=== PATIENT | female | born 1960 | race Caucasian/White ===

== ENCOUNTER 2021-11-08 13:29 | Inpatient (IN) | payer OTHER, SELFPAY ==
--- NOTE | 2021-11-08 14:22 | ED.PSYCH ---
HPI - Psych General Chief Complaint: Psychiatric Symptoms Stated Complaint: failure to thrive Time Seen by Provider: 11/08/21 14:21 Source: patient Mode of arrival: EMS Limitations: no limitations History of Present Illness HPI Narrative: This is a 60-year-old female presenting to the emergency department via ambulance on a Section 12, she is coming in for failure to thrive. According to patient for the past 15 days she has been having hard time sleeping, she lives at home with her who is very ill who she has been taking care of. She reports that she has been eating much or drinking over the past 15 days. She tells me that throughout the day shows does have water and soda. She also tells me she has not been taking care of her not showering, or doing personal care activiteies such as brushing teeth and hygiene. She reports anxiety, racing thoughts. She tells me that she has been hearing voices, she hears male voices speaking to her, she can not really tell me exactly what they are saying to her. She tells me that this is new. Denies visual and tactile hallucinations. Denies drugs, alcohol and tobacco use. Patient tells me that she used to be on trazodone and Zoloft years ago however she has not been taking these meds for a while. Unsure why she was taking these medications,she tells me that she thinks is for anxiety and depression. Denies SI/HI. She has no medical complaints at this time. complaint: anxiety Onset (ago): day(s) (15) Duration: constant History of same: Yes Relieving factors: none Exacerbating factors: none Context: significant life stressor (very ill ) Associated psychiatric symptoms: racing thoughts Associated symptoms: denies other symptoms Treatments prior to arrival: placed on mental health hold Related Data Home Medications Medication Instructions Recorded Confirmed No Known Home Meds 11/08/21 11/08/21 Allergies Allergy/AdvReac Type Severity Reaction Status Date / Time No Known Allergies Allergy Verified 11/08/21 14:37 [No Known Allergies*] Review of Systems Review of Systems: Constitutional : No Fever, No Chills ENT/Mouth : No sore throat, No Rhinorrhea Eyes: No Eye Pain, No Swelling, No Redness Cardiovascular : No Chest Pain, No SOB Respiratory : No Cough, No Sputum Gastrointestinal : No Nausea, No Vomiting, No Diarrhea, No abdominal Pain Genitourinary : No Dysuria, No Hematuria Musculoskeletal : No joint pain, No Myalgias, No Joint Swelling Skin : No Skin Lesions, No rash Neuro : No Weakness, No Numbness Psych : + Anxiety, No Depression, No SI/HI/AH/VH All other systems reviewed and are negative Yes all other systems are reviewed and are negative [facility] Past Medical History Attestation statement: The following information was validated with the patient. Source: old records reviewed and nursing notes reviewed Social History Social History Alcohol intake: never Patient Tobacco Use Status: Never used Tobacco Use of substances other than those prescribed or required for medical reasons: No Advance Directives: Yes Advance Directives Information Provided: No Advance Directives on File: No Physical Exam Vital Signs: Vital Signs: Last Vital Signs Temp 98.8 F 11/08/21 14:41 Pulse 84 11/08/21 14:41 Resp 18 11/08/21 14:41 BP 149/93 H 11/08/21 14:41 Pulse Ox 96 11/08/21 14:41 BMI result Body Mass Index 35.5 VSS Appearance: Alert.? Oriented X3.? No acute distress.? Head: Normocephalic, atraumatic, no step-offs or deformities Eyes: Pupils equal, round and reactive to light.? ENT: Pharynx normal.? Neck: Normal inspection.? Neck supple.? CVS: Normal heart rate and rhythm.? Pulses normal.? Respiratory: No respiratory distress.? Breath sounds normal.? Abdomen: Soft and nontender.? Skin: Skin warm and dry.? Normal skin color.? Normal skin turgor.? Extremities: No lower extremity edema.? No calf ttp. 5/5 strength to bilateral upper and lower extremities Back: No midline tenderness, no C-spine tenderness, full range of motion, no CVA tenderness bilaterally Neuro: Oriented X 3.? No motor deficit.? No sensory deficit. CN 2-12 intact Course Reevaluation(s) Reevaluation #1: CBC within normal limits. No acute electrolyte abnormalities. Urine clean. HYLTON negative. COVID negative. At this time patient will be placed in physician observation to allow more time for the behavioral health team to evaluate this patient. At time the observation was started vital signs were stable. Patient was not in any acute distress. Physical examination unchanged from initial. Will continue to monitor. Time: 16:55 MDM - Psych MDM Narrative Medical decision making narrative: 1420 60 yo f presenting from home on a section 12 for inability of taking care of herself, patient reports anxiety, depression and auditory hallucinations times 15 days. She reports she has not been taking care of herself, not practicing activities of daily living. Remote history of anxiety and depression used to take trazodone and Zoloft years ago. Has had multiple psych admissions in the past. PE benign Plan, basic labs, covid, UA, ethanol Medical Records Attestation: I reviewed the patient's medical records. Lab Data Attestation: I reviewed the patient's lab results. Result diagrams: 11/08/21 16:24 11/08/21 16:24 Labs: Lab Results 11/08/21 11/08/21 11/08/21 Range/Units 14:48 14:48 14:48 WBC (4.8-10.8) X10*3/uL RBC (4.20-5.50) X10*6/uL Hgb (12.0-16.0) g/dl Hct (37.0-47.0) % MCV (80.0-98.0) fL MCH (27.0-33.0) pg MCHC (31.0-35.0) g/dl RDW (11.0-16.0) % Plt Count (160-400) X10*3/uL MPV (9.4-12.3) fL Immature Gran % (Auto) (0.0-0.4) % Neut % (Auto) (45-73) % Lymph % (Auto) (20-40) % [place] % (Auto) (2-11) % Eos % (Auto) (0-4) % Baso % (Auto) (0-2) % Lymph # (Auto) (1.2-4.9) X10*3/uL [place] # (Auto) (0.1-1.2) X10*3/uL Eos # (Auto) (0.0-0.4) X10*3/uL Baso # (Auto) (0.0-0.2) X10*3/uL Abs Immat Gran (auto) (0.00-0.03) X10*3/uL Absolute Neuts (auto) (2.0-8.3) x10*3/uL Absolute Nucleated RBC (0.0-0.012) X10*3/uL Nucleated RBC % (auto) (0.0-0.2) /100WBC Urine Color YELLOW Urine Appearance CLEAR Urine pH 7.5 (5.0-8.0) Ur Specific [place] 1.015 (1.005-1.025) Urine Protein NEG (NEG-TRACE) MG/DL Urine Glucose (UA) NEG (NEG) MG/DL Urine Ketones 5 (NEG) MG/DL Urine Blood NEG (NEG) Urine Nitrite NEG (NEG) Ur Leukocyte Esterase NEG (NEG) Urine Opiates Screen Not Detected (Not Detect) Urine Fentanyl Screen Not Detected (Not Detect) Ur Barbiturates Screen Not Detected (Not Detect) Ur Phencyclidine Scrn Not Detected (Not Detect) Ur Amphetamines Screen Not Detected (Not Detect) U Benzodiazepines Scrn Not Detected (Not Detect) Urine Cocaine Screen Not Detected (Not Detect) U Marijuana (THC) Screen Not Detected (Not Detect) COVID-19 ([facility]) Negative (Negative) COVID-19 Clin Com See Note 11/08/21 Range/Units 16:24 WBC 6.0 (4.8-10.8) X10*3/uL RBC 4.51 (4.20-5.50) X10*6/uL Hgb 15.1 (12.0-16.0) g/dl Hct 45.6 (37.0-47.0) % MCV 101.1 H (80.0-98.0) fL MCH 33.5 H (27.0-33.0) pg MCHC 33.1 (31.0-35.0) g/dl RDW 14.2 (11.0-16.0) % Plt Count 218 (160-400) X10*3/uL MPV 10.3 (9.4-12.3) fL Immature Gran % (Auto) 0.2 (0.0-0.4) % Neut % (Auto) 59.3 (45-73) % Lymph % (Auto) 32.9 (20-40) % [place] % (Auto) 5.4 (2-11) % Eos % (Auto) 1.5 (0-4) % Baso % (Auto) 0.7 (0-2) % Lymph # (Auto) 2.0 (1.2-4.9) X10*3/uL [place] # (Auto) 0.3 (0.1-1.2) X10*3/uL Eos # (Auto) 0.1 (0.0-0.4) X10*3/uL Baso # (Auto) 0.0 (0.0-0.2) X10*3/uL Abs Immat Gran (auto) 0.01 (0.00-0.03) X10*3/uL Absolute Neuts (auto) 3.6 (2.0-8.3) x10*3/uL Absolute Nucleated RBC 0.000 (0.0-0.012) X10*3/uL Nucleated RBC % (auto) 0.0 (0.0-0.2) /100WBC Urine Color Urine Appearance Urine pH (5.0-8.0) Ur Specific [place] (1.005-1.025) Urine Protein (NEG-TRACE) MG/DL Urine Glucose (UA) (NEG) MG/DL Urine Ketones (NEG) MG/DL Urine Blood (NEG) Urine Nitrite (NEG) Ur Leukocyte Esterase (NEG) Urine Opiates Screen (Not Detect) Urine Fentanyl Screen (Not Detect) Ur Barbiturates Screen (Not Detect) Ur Phencyclidine Scrn (Not Detect) Ur Amphetamines Screen (Not Detect) U Benzodiazepines Scrn (Not Detect) Urine Cocaine Screen (Not Detect) U Marijuana (THC) Screen (Not Detect) COVID-19 ([facility]) (Negative) COVID-19 Clin Com Critical Care Time Critical Care Time Critical Care Time: No Discharge Plan Discharge Clinical Impression: Depression, Acute anxiety Patient Disposition: Still a Patient Prescriptions: No Action No Known Home Meds RF: 0
[2021-11-08 14:41] VITALS: BP 149/93; BP 150/62; PULSE 84; PULSE 88; RESP 18; TEMP 37.1; O2SAT 96; BMI 35.5
--- NOTE | 2021-11-08 14:53 | PC.NURSE ---
expect note states that patient is a bedsearch.
--- NOTE | 2021-11-08 15:14 | PC.NURSE ---
Luis Manuel Hubbard at [facility] STATING that patient's notes are still being worked on. Luis Manuel will call back with full assessment and plan of care when it is available.
[2021-11-08 15:16] LABS: Appearance Urine CLEAR; Color Urine YELLOW; Glucose Urine UA NEG (NEG); Leukocyte Esterase Urine NEG (NEG); Nitrite Urine NEG (NEG); PH 7.5 (5.0-8.0); Specific Gravity - Urine 1.015 (1.005-1.025); Urine Blood NEG (NEG); Urine Ketones 5 MG/DL (NEG); Urine Protein NEG (NEG-TRACE)
[2021-11-08 15:26] LABS: COVID-19 Test Negative (Negative)
[2021-11-08 15:28] LABS: Amphetamine Screen Urine Not Detected (Not Detect); Barbiturates, Urine Not Detected (Not Detect); Benzodiazepines Screen Urine Not Detected (Not Detect); Cannabinoid Screen Urine Not Detected (Not Detect); Cocaine Screen Urine Not Detected (Not Detect); Fentanyl, urine Not Detected (Not Detect); Opiate Screen Urine Not Detected (Not Detect); Phencyclidine Screen Urine Not Detected (Not Detect)
--- NOTE | 2021-11-08 16:37 | PC.NURSE ---
has been eating, drinking, and socializing in POD. Is aware of inpatient bedsearch. Was seen by N in the community
[2021-11-08 16:42] LABS: MANUAL DIFF FLAG NO
[2021-11-08 16:44] LABS: Basophils Percent Auto 0.7 % (0-2); Eosinophils Absolute Auto 0.1 X10*3/uL (0.0-0.4); Eosinophils Percent Auto 1.5 % (0-4); Hematocrit 45.6 % (37.0-47.0); Hemoglobin 15.1 g/dl (12.0-16.0); Imm Gran Abs Auto 0.01 X10*3/uL (0.00-0.03); Imm Gran Pct Auto 0.2 % (0.0-0.4); Lymphocytes Percent Auto 32.9 % (20-40); Mean Corpuscular HGB Conc 33.1 g/dl (31.0-35.0); Mean Corpuscular Hemoglobin 33.5 pg (27.0-33.0); Mean Corpuscular Volume 101.1 fL (80.0-98.0); Mean Platelet Volume 10.3 fL (9.4-12.3); Monocytes Absolute Auto 0.3 X10*3/uL (0.1-1.2); Monocytes Percent Auto 5.4 % (2-11); Neutrophils Absolute Auto 3.6 x10*3/uL (2.0-8.3); Neutrophils Percent Auto 59.3 % (45-73); Platelet Count 218 X10*3/uL (160-400); Red Blood Count 4.51 X10*6/uL (4.20-5.50); Red Cell Distribution Width 14.2 % (11.0-16.0)
[2021-11-08 16:59] LABS: Ethanol < 10 mg/dL
[2021-11-08 17:03] LABS: Alanine Aminotransferase 105 U/L (0-31); Albumin Level 3.8 g/dL (3.5-5.0); Alkaline Phosphatase 116 U/L (39-117); Anion Gap 12 (12-20); Aspartate Amino Transferase 90 U/L (5-31); Bilirubin Total 0.7 mg/dL (0.0-1.0); Blood Urea Nitrogen 8 mg/dL (9-16); Carbon Dioxide 29 mmol/L (22-29); Chloride 106 mmol/L (96-108); Creatinine Clr Calc Pharmacy 93.8; Estimated Glomerular Filt Rate > 60; Glucose Random 112 mg/dL (60-115); Potassium 4.1 mmol/L (3.3-5.1); Sodium 143 mmol/L (135-145); Total Protein 6.9 g/dL (6.5-8.0)
--- NOTE | 2021-11-08 17:10 | PC.NURSE ---
Pt has been coloring, quietly in back room/bedroom. Is aware of bedsearch. Now drinking 2nd liter of water. no complaints at this time. is calm.
--- NOTE | 2021-11-09 06:20 | PC.NURSE ---
Patient slept through the night, no distress observed/reported, currently not on any medication, behavior appropriate, disposition per [facility] is voluntary inpatient bed search, VSS, will continue to monitor
[2021-11-09 06:37] VITALS: BP 148/83; PULSE 78; RESP 17; TEMP 36.9; O2SAT 98
--- NOTE | 2021-11-09 07:22 | PC.NURSE ---
patient appears to remain asleep at present respirations are even and unlabored, patient appears in no distress
[2021-11-09 22:38] VITALS: BP 160/79; PULSE 86; RESP 16; TEMP 36.8; O2SAT 95
[2021-11-09 23:35] VITALS: BP 118/77; PULSE 86; RESP 16; TEMP 36.4; O2SAT 98
[2021-11-10] MEDS: traZODone HCL 50 MG TABLET PO (00:43)
--- NOTE | 2021-11-10 01:22 | PC.ADMIT ---
PT is a 60 year old Sinhala speaking female, referred by [facility], admitted on a CV to unit at 2330 from [facility]. PT has had 4 prior IPOCs, including one to in 2013. PT is A+O, cooperative with admission process, although PT referred to herself as not in a current relationship and being homeless. PT currently lives with her , whom has numerous medical conditions, whom PT is primary caregiver of. PT's Nephew reported that PT was previously on medications but not for the past two years, PT has not been caring for herself or her , not paying bills, and there was no food in the home. PT has had past substance abuse issues, over 15 years ago, PT is non smoker. PT denies any active or past medical issues. PT is on 15 minute safety checks, PT oriented to unit, staff, and routine. Nurse to nurse complete by RN from previous shift, placed orders for PT. PT refused 2mg of Ativan which was ordered, notified. PT AST 90H, ALT 105H, BUN 8L, BP 160/79 before transport to unit. Upon arrival to unit VS, BP 118/77, P 86, T 97.5, O2 98, no signs or symptoms of withdrawal. PT denies flu vaccine at this time.
[2021-11-10 06:00] VITALS: BP 139/80; PULSE 84; RESP 17; TEMP 36.7; O2SAT 96
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
[2021-11-10] MEDS: risperiDONE 1 MG TABLET PO ×2 (14:32→21:58)
[2021-11-10] MEDS: Sertraline HCL 50 MG TABLET PO (14:32)
[2021-11-10 18:00] VITALS: BP 137/64; PULSE 98; TEMP 36.8; O2SAT 94
[2021-11-10] MEDS: traZODone HCL 100 MG TABLET PO (21:58)
[2021-11-11 06:00] VITALS: BP 116/61; PULSE 91; TEMP 37.2; O2SAT 96
[2021-11-11] MEDS: risperiDONE 1 MG TABLET PO (08:42)
[2021-11-11] MEDS: Sertraline HCL 50 MG TABLET PO (08:42)
--- NOTE | 2021-11-11 11:25 | P.PNPSI_ITS ---
Subjective Subjective Date of Service: 11/11/21 Reason For Visit: Major Depressive Disorder Interim History: Patient is friendly and polite on approach but guarded and keeps the covers over half her face and her eyes closed throughout discussion. Patient says that things were overall fine at home but that she just needs to get back on her medications as some PTSD symptoms have increased. Upon inquiry patient remains vague about symptoms. She said she has been off her medications for about 2 years. Incendiary Powder Mixer inquired about conditions at home as report says that patient was not taking care of herself, not bathing, house in disarray and also not taking care of her who has multiple medical illnesses. She again politely denied that anything was much wrong and that she just needs to get back on her medications. Regarding her meds she says that Risperdal, sertraline and tr azodone have helped her in the past and that she wants to continue; she also agrees to increasing the doses. Incendiary Powder Mixer asked about calling her and she said she rather he not be involved but did not elaborate further. She reports that he was the 1 who called for her to be evaluated at the emergency room and knows that she is on the psychiatric unit. Patient discussed medications further and asked for Risperdal low-dose to be available during the day for anxiety. Mental Status Exam Mental Status Exam Narrative: A&O. Pt is lying down in bed, blankets pulled part of her head; Poor eye cont act; attentive and polite. No Tics or Tremors. No abnormal involuntary movements. Pt is guarded, somewhat difficult to engage; Speech is Non-pressured; responds to questions but does not initiate; regular rate and rhythm; normal volume and prosody.No prolonged speech latency. No dysarthria. Mood is ?depressed,? affect is incongruent, constricted. Perception: Endorses AH; denies VH or delusional thought content. Thought content is on treatment, but remains guarded; Denies SI/SIB/HI. No known cognitive or memory impairment. Insight/ Judgment is limited/ poor. Diagnostics Vital Signs (24Hr): Vital Signs - 24 hr 11/10/21 18:00 11/11/21 06:00 Temperature 98.3 F 98.9 F Pulse Rate 98 91 Blood Pressure 137/64 116/61 Pulse Oximetry 94 96 BMI result Verdana 4 Body Mass Index Verdana 4 35.5 Verdana 4 Verdana 4 Labs Results: 11/08/21 16:24 11/08/21 16:24 Medications Medications Current Medications Al Hydroxide/Mg Hydroxide (Magnesium Hydrox/Alum Hydrox 30 Ml Oral.Susp) 30 ml PO Q6H PRN PRN Reason: Heartburn/Nausea Hydroxyzine HCl (Hydroxyzine Hcl 25 Mg Tablet) 25 mg PO BEDTIME PRN PRN Reason: Anxiety Ibuprofen (Ibuprofen 600 Mg Tablet) 600 mg PO Q8H PRN PRN Reason: Pain, Mild (Pain Scale 1-3) Magnesium Hydroxide (Milk Of Magnesia 30 Ml Oral.Susp) 30 ml PO DAILY PRN PRN Reason: Constipation Risperidone (Risperidone 1 Mg Tablet) 1 mg PO BID [facility] Last Admin: 11/11/21 08:42 Dose: 1 mg Documented by: Sertraline HCl (Sertraline Hcl 50 Mg Tablet) 50 mg PO DAILY [facility] Last Admin: 11/11/21 08:42 Dose: 50 mg Documented by: Trazodone HCl (Trazodone Hcl 100 Mg Tablet) 100 mg PO BEDTIME [facility] Last Admin: 11/10/21 21:58 Dose: 100 mg Documented by: Allergies Allergies Allergy/AdvReac Type Severity Reaction Status Date / Time No Known Allergies Allergy Verified 11/08/21 14:37 [No Known Allergies*] Assessment & Plan Assessment & Plan (1) MDD (major depressive disorder), recurrent, severe, with psychosis: Status: Acute Code(s): F33.3 - Major depressive disorder, recurrent, severe with psychotic symptoms (2) Post traumatic stress disorder (PTSD): Status: Acute Code(s): F43.10 - Post-traumatic stress disorder, unspecified Plan Pt is a 60 y.o. Female who carries a dx of PTSD, MDD with psychotic features. She presented to [facility] ED on 11/08/21 via EMS on section 12a due to failure to thrive.?She is presenting with neglect for self care, sx of depression, and question of delusional thought content vs denial (withholding of information, i.e. reluctant to disclose extent of neglect for self care and denied living with , would not sign ZULMA, hiding under blankets). Per chart, pt has hx of decompensating in similar way when non-adherent with medication. She has been off medication x 2 years. Patient is guarded and acting a little bizarre with blankets over her face and eyes remaining clothes during admission. However she is organized in her s peech, wants treatment which she said has helped in the past. However she remains vague and guarded and minimizing her level of decompensation, compared to care team note. Collateral would be very helpful. She currently she says she does not want her involved although he is the 1 who called the ambulance for her to be taken to the ED and evaluated, and no she is on a psychiatric unit. There is concern that patient decompensated to a point where she was unable to care for her , for whom she's ostensbily accepted some level of responsible for doing so and has medical illnesses. This will need to be evaluated to assure safe discharge. Plan: Patient on CV Zoloft increased to 75 mg daily Risperdal switch to 2 mg q.h.s. Risperdal 0.5 mg b.i.d. PRN addedat patient's request trazodone at 100 mg QHS due to reported benefit for sleep. Otherwise: Monitor response to medications. Monitor for safety in the milieu. Discharge on stabilization. Patient seen. Chart reviewed. Discussed with team. Obtain collateral contact info?as needed I spent minutes with the patient and/or on the patient floor today, greater than?50% of which was spent counseling/coordinating care. Reason for contiued inpatient stay Substantial Risk for: inability to function
[2021-11-11 17:10] VITALS: BP 136/65; PULSE 82; TEMP 36.7
[2021-11-11] MEDS: hydrOXYzine HCL 25 MG TABLET PO (18:15)
[2021-11-11] MEDS: risperiDONE 2 MG TABLET PO (21:35)
[2021-11-11] MEDS: traZODone HCL 100 MG TABLET PO (21:35)
[2021-11-12 04:15] VITALS: BP 134/65; PULSE 80; TEMP 36.8; O2SAT 98
[2021-11-12] MEDS: Sertraline HCL 25 MG TABLET 75 MG PO (08:38)
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
[2021-11-12 18:00] VITALS: BP 138/75; PULSE 71; RESP 16; TEMP 36.3; O2SAT 97
[2021-11-12] MEDS: traZODone HCL 100 MG TABLET PO (21:34)
[2021-11-12] MEDS: risperiDONE 2 MG TABLET PO (21:34)
[2021-11-13 06:00] VITALS: BP 111/69; PULSE 120; TEMP 36.3; O2SAT 96
[2021-11-13] MEDS: Sertraline HCL 25 MG TABLET 75 MG PO (08:54)
[2021-11-13] MEDS: risperiDONE 0.5 MG TABLET PO ×2 (09:12→16:19)
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
[2021-11-13 18:20] VITALS: BP 134/78; PULSE 115; RESP 16; TEMP 37.2; O2SAT 95
[2021-11-13] MEDS: risperiDONE 2 MG TABLET PO (20:18)
[2021-11-13] MEDS: traZODone HCL 100 MG TABLET PO (20:18)
[2021-11-13 20:21] VITALS: PULSE 87; TEMP 36.6; O2SAT 96
[2021-11-14] MEDS: risperiDONE 0.5 MG TABLET PO ×4 (00:11→22:48)
[2021-11-14 06:00] VITALS: BP 87/52; PULSE 117; RESP 18; TEMP 36.8; O2SAT 94
[2021-11-14] MEDS: Sertraline HCL 100 MG TABLET PO (08:47)
[2021-11-14 18:00] VITALS: BP 139/81; PULSE 79; TEMP 36.4; O2SAT 93
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
[2021-11-14] MEDS: risperiDONE 2 MG TABLET PO (20:36)
[2021-11-14] MEDS: traZODone HCL 100 MG TABLET PO (20:36)
[2021-11-15 06:00] VITALS: BP 121/61; PULSE 78; RESP 17; TEMP 36.6; O2SAT 96
[2021-11-15] MEDS: Sertraline HCL 100 MG TABLET PO (09:11)
[2021-11-15] MEDS: risperiDONE 0.5 MG TABLET PO ×2 (12:35→17:16)
[2021-11-15 18:00] VITALS: BP 150/83; PULSE 99; TEMP 37
[2021-11-15] MEDS: risperiDONE 2 MG TABLET PO (20:10)
[2021-11-15] MEDS: traZODone HCL 100 MG TABLET PO (20:10)
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
[2021-11-16] MEDS: risperiDONE 0.5 MG TABLET PO ×3 (02:05→15:03)
[2021-11-16 08:30] VITALS: BP 131/81; PULSE 85; TEMP 37.2
[2021-11-16] MEDS: Sertraline HCL 100 MG TABLET PO (09:43)
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
[2021-11-16 18:13] VITALS: BP 129/66; PULSE 91; RESP 16; TEMP 37.2; O2SAT 96
[2021-11-16 21:00] VITALS: BP 129/76; PULSE 88; TEMP 36.7; O2SAT 97
[2021-11-16] MEDS: cloNIDine HCL 0.1 MG TABLET PO (21:05)
[2021-11-16] MEDS: risperiDONE 2 MG TABLET PO (21:05)
[2021-11-16] MEDS: traZODone HCL 100 MG TABLET PO (21:05)
[2021-11-17 06:00] VITALS: BP 130/70; PULSE 85; RESP 17; TEMP 36.6; O2SAT 96
[2021-11-17] MEDS: Sertraline HCL 50 MG TABLET 150 MG PO (08:38)
[2021-11-17] MEDS: risperiDONE 0.5 MG TABLET PO ×3 (09:24→22:11)
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
[2021-11-17 19:45] VITALS: BP 132/69; PULSE 88; TEMP 37; O2SAT 96
[2021-11-17] MEDS: cloNIDine HCL 0.1 MG TABLET PO (19:52)
[2021-11-17] MEDS: risperiDONE 2 MG TABLET PO (20:04)
[2021-11-17] MEDS: traZODone HCL 100 MG TABLET PO (20:05)
[2021-11-18] MEDS: risperiDONE 0.5 MG TABLET PO ×2 (04:37→16:23)
[2021-11-18 06:00] VITALS: BP 128/74; PULSE 94; RESP 18; TEMP 36.4; O2SAT 95
[2021-11-18] MEDS: Sertraline HCL 50 MG TABLET 150 MG PO (08:42)
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
[2021-11-18 18:48] VITALS: BP 136/76; PULSE 84; RESP 16; TEMP 37.1; O2SAT 97
[2021-11-18 19:26] LABS: COVID-19 Test Negative (Negative)
[2021-11-18] MEDS: cloNIDine HCL 0.1 MG TABLET PO (20:51)
[2021-11-18] MEDS: traZODone HCL 100 MG TABLET PO (20:51)
[2021-11-18] MEDS: risperiDONE 2 MG TABLET PO (20:51)
[2021-11-19 06:00] VITALS: BP 143/79; PULSE 83; RESP 18; TEMP 36; O2SAT 95
[2021-11-19 08:30] VITALS: BP 133/75; PULSE 106; TEMP 37.1
[2021-11-19] MEDS: Sertraline HCL 50 MG TABLET 150 MG PO (08:47)
[2021-11-19] MEDS: risperiDONE 0.5 MG TABLET PO (11:29)
== END 2021-11-19 11:52 | disposition home or self-care (01) | DRG 751 ==
LOC: HO.ED 11-09 12:05 → HO.PM5 11-09 23:59
PROVIDERS: Admitting Provider Psychiatry & Neurology Psychiatry; Emergency Provider Emergency Medicine; Visit Provider Psychiatry & Neurology Psychiatry
DX: F33.3 Major depressive disorder, recurrent, severe with psychotic symptoms (principal); F43.10 Post-traumatic stress disorder, unspecified; Z20.822 Contact with and (suspected) exposure to COVID-19; Z79.1 Long term (current) use of non-steroidal anti-inflammatories (NSAID); Z79.899 Other long term (current) drug therapy
CPT/HCPCS: 36415; 80053; 80307; 81003; 82077; 85025; 87635; 96360; 99285